=== PATIENT | male | born 1945 | race Caucasian/White ===

== ENCOUNTER 2022-12-16 09:38 | Emergency (ER) | payer MEDICARE, SELFPAY ==
[2022-12-16] VITALS (11 sets, daily range): BP systolic 172–200; BP diastolic 72–84; PULSE 49–64; RESP 18–22; TEMP 36.8; O2SAT 96–99; BMI 27.8
--- NOTE | 2022-12-16 09:55 | DI.RAD.S_ITS ---
PROCEDURE: XR CHEST 1V INDICATIONS: chest pain TECHNIQUE: One view of the chest was acquired. COMPARISON: None. FINDINGS: Surgical changes and devices: None. Lungs and pleura: Lungs are clear. No pleural effusions or pneumothorax. Mediastinum: Mediastinal contours appear normal. Heart size is normal. Bones and chest wall: No suspicious bony lesions. Overlying soft tissues appear unremarkable. IMPRESSION: No acute cardiopulmonary process. Dictated by: Vignesh Colvin M.D. on 12/16/2022 at 10:35 Approved by: Vignesh Colvin M.D. on 12/16/2022 at 10:35
[2022-12-16 10:09] LABS: Add Manual Diff / Slide Review NO; Basophils Absolute Auto 100 /uL (0-100); Basophils Percent Auto 1.1 % (0-2); Eosinophils Absolute Auto 100 /uL (0-450); Eosinophils Percent Auto 2.2 % (2-4); Hemoglobin 13.2 g/dL (13.5-17.5); Lymphocytes Absolute Auto 1700 /uL (1100-4500); Lymphocytes Percent Auto 26.3 % (25-40); Mean Corpuscular HGB Conc 34.6 % (30-36); Mean Corpuscular Hemoglobin 33.4 PG (26-34); Mean Corpuscular Volume 96.3 fL (80-100); Monocytes Absolute Auto 800 /uL (0-900); Monocytes Percent Auto 12.3 % (3-14); Neutrophils Absolute Auto 3800 /uL (1500-7000); Neutrophils Percent Auto 58.1 % (50-75); Platelet Count 177 X10^3/uL (150-400); Red Blood Cell Count 3.94 X10^6/uL (4.5-5.9); Red Cell Distribution Width 13.5 % (11.6-14.8); White Blood Cell Count 6.6 X10^3/uL (4.5-11.0)
[2022-12-16 10:15] LABS: PTT Partial Thromboplastin Tim 29 SECONDS (26-36)
[2022-12-16 10:18] LABS: Alanine Aminotransferase 22 IU/L (<50); Albumin 4.2 g/dL (3.5-5.0); Albumin Globulin Ratio 1.4 (1.0-2.8); Alkaline Phosphatase 76 U/L (38-126); Aspartate Aminotransferase 30 IU/L (17-59); BUN Creatinine Ratio 18.3 (6-22); Bilirubin Total 0.8 mg/dL (0.2-1.3); Blood Urea Nitrogen 19 mg/dL (9-20); Calcium 9.1 mg/dL (8.4-10.2); Carbon Dioxide 27 mmol/L (22-32); Chloride 106 mmol/L (98-107); Creatine Kinase 79 U/L (55-170); Estimated Glomerular Filt Rate > 60 mL/min (>60); Glucose 101 mg/dL (80-110); HEMOLYSIS 19 (0-50); Lipase 58 U/L (23-300); Magnesium 2.2 mg/dL (1.6-2.3); Potassium 4.3 mmol/L (3.4-5.1); Sodium 137 mmol/L (137-145); Total Protein 7.2 g/dL (6.3-8.2)
[2022-12-16 10:29] LABS: Troponin I < 0.012 ng/mL (0.01-0.034)
--- NOTE | 2022-12-16 10:45 | ED_ITS ---
HPI - General Adult General Chief complaint: Hypertension Stated complaint: high bp Time Seen by Provider: 12/16/22 10:45 Source: patient Mode of arrival: Ambulatory History of Present Illness HPI narrative: 77-year-old male with history of hypertension that has been moderately controlled. Patient has prior history of pulmonary emboli and factor 5 Leiden and a prior subdural after having a supratherapeutic INR. Patient was then ultimately converted over to Eliquis. Patient presents today for hypertension. He states he is recently had medication changes he was noted to be bradycardic and feeling fatigued so they had decreased his diltiazem to 180 mg daily. He then had losartan 25 mg added back 3 weeks ago and was bumped up to 50 mg 1 week ago. He has been checking his blood pressures regularly. Patient states he has been checking his blood pressure at home he was 150-160 in the morning and 120- 110 in the evenings he checks twice daily he has been running like this for several weeks. Patient states this morning he woke up he had a little bit of a pain in the left side of his neck did not radiate anywhere, he never had any chest pain or pressure shortness of breath no diaphoresis no nausea or vomiting, no headaches. No vision changes. No numbness tingling or weakness. No swelling in extremities. No GI or urinary symptoms. Patient denied any other symptoms. He states that resolved shortly thereafter. He checked his blood pressure was 200 systolic. Patient states he has been taking his other medications regularly which includes Eliquis, atorvastatin probiotic and vitamins. Patient had no prior surgeries. He states he is allergic to Keppra. Notes he had a nontraumatic subdural after a significantly supratherapeutic Coumadin level. He was on Keppra prophylactically which is how he found his allergy. Denies tobacco, alcohol or illicit. He lives in [place] with his they are visiting for the week and flew in yesterday. Related Data Previous Rx's Medication Instructions Recorded losartan 25 mg tablet 25 mg PO DAILY #21 tabs 12/16/22 Allergies Allergy/AdvReac Type Severity Reaction Status Date / Time levetiracetam [From Keppra] Allergy Intermediate Rash Verified 12/16/22 09:49 Review of Systems Review of Systems ROS Unobtainable: All systems reviewed & are unremarkable except as noted in HPI and below Patient History Medical History Factor 5 Leiden mutation, heterozygous Hypertension Social History Smoking Status: Former smoker Smoking Status: Former smoker alcohol intake frequency: a few times a week Substance Use Type: does not use Exam Narrative Exam Narrative: GENERAL: Alert and oriented x three, male in no acute distress. HEENT: Head normocephalic, atraumatic, EOMI, pupils reactive, face symmetric, moist mucous membranes NECK: Supple, full range of motion, no cervical vertebral tenderness. CARDIOVASCULAR: Regular rate and rhythm without murmurs, rubs or gallops. RESPIRATORY: Breath sounds equal bilaterally, no wheezes rales or rhonchi. ABDOMEN: Soft, nontender. Normoactive bowel sounds all 4 quadrants. No guarding or rebound, rigidity, no mass, no pulsatile mass or bruit. : No CVA tenderness EXTREMITIES: Normal range of motion, no clubbing or edema. Neurovascularly inta ct NEUROLOGICAL: Cranial nerves II through XII grossly intact. Moving all extremities SKIN: Warm, dry, no petechiae, no rashes or lesions. Initial Vital Signs Initial Vital Signs: Vital Signs Temperature 98.3 F 12/16/22 09:44 Pulse Rate 64 12/16/22 09:44 Respiratory Rate 18 12/16/22 09:44 Blood Pressure 200/83 H 12/16/22 09:44 Pulse Oximetry 99 12/16/22 09:44 Oxygen Delivery Method Room Air 12/16/22 09:44 Course Orders Ordered: ED Orders 12/16/22 09:55 XR chest 1V Stat 12/16/22 10:00 Complete Blood Count AUTO DIFF Stat Comprehensive Metabolic Panel Stat Lipase Stat Magnesium Stat PTT Partial Thromboplastin Fareed Stat Prothrombin Time INR Stat Troponin & CK Cardiac Panel Stat 12/16/22 10:06 EKG-12 Lead Stat Vital Signs Vital signs: Vital Signs - 8 hr 12/16/22 09:44 12/16/22 09:55 12/16/22 09:56 Temperature 98.3 F Pulse Rate 64 Respiratory Rate 18 Blood Pressure 200/83 H 194/84 H Pulse Oximetry 99 97 Oxygen Delivery Method Room Air 12/16/22 09:56 12/16/22 10:00 12/16/22 10:09 Temperature Pulse Rate 56 L 59 L 56 L Respiratory Rate 20 Blood Pressure Pulse Oximetry 97 98 99 Oxygen Delivery Method 12/16/22 10:09 12/16/22 10:30 12/16/22 10:31 Temperature Pulse Rate 51 L 51 L Respiratory Rate 21 20 Blood Pressure 181/72 H Pulse Oximetry 97 96 Oxygen Delivery Method 12/16/22 10:31 12/16/22 11:00 12/16/22 11:01 Temperature Pulse Rate 49 L Respiratory Rate 19 Blood Pressure 172/76 H 180/78 H Pulse Oximetry 96 Oxygen Delivery Method 12/16/22 11:01 12/16/22 11:30 12/16/22 11:31 Temperature Pulse Rate 49 L 51 L 49 L Respiratory Rate 22 21 22 Blood Pressure Pulse Oximetry 96 97 97 Oxygen Delivery Method 12/16/22 11:31 Temperature Pulse Rate Respiratory Rate Blood Pressure 176/79 H Pulse Oximetry Oxygen Delivery Method Medical Decision Making Lab Data 12/16/22 10:00 12/16/22 10:00 Labs: Lab Results 12/16/22 12/16/22 12/16/22 Range/Units 10:00 10:00 10:00 WBC 6.6 (4.5-11.0) X10^3/uL RBC 3.94 L (4.5-5.9) X10^6/uL Hgb 13.2 L (13.5-17.5) g/dL Hct 38.0 L (41-53) % MCV 96.3 (80-100) fL MCH 33.4 (26-34) PG MCHC 34.6 (30-36) % RDW 13.5 (11.6-14.8) % Plt Count 177 (150-400) X10^3/uL Neut % (Auto) 58.1 (50-75) % Lymph % (Auto) 26.3 (25-40) % Rich % (Auto) 12.3 (3-14) % Eos % (Auto) 2.2 (2-4) % Baso % (Auto) 1.1 (0-2) % Neut # (Auto) 3800 (1928-0876) /uL Lymph # (Auto) 1700 (8435-9333) /uL Rich # (Auto) 800 (0-900) /uL Eos # (Auto) 100 (0-450) /uL Baso # (Auto) 100 (0-100) /uL PT 12.0 (10.1-12.7) SECONDS INR 1.0 (0.9-1.3) APTT 29 (26-36) SECONDS Sodium 137 (137-145) mmol/L Potassium 4.3 (3.4-5.1) mmol/L Chloride 106 (98-107) mmol/L Carbon Dioxide 27 (22-32) mmol/L BUN 19 (9-20) mg/dL Creatinine 1.04 (0.66-1.25) mg/dL Estimated GFR > 60 (>60) mL/min BUN/Creatinine Ratio 18.3 (6-22) Glucose 101 (80-110) mg/dL Calcium 9.1 (8.4-10.2) mg/dL Magnesium 2.2 (1.6-2.3) mg/dL Total Bilirubin 0.8 (0.2-1.3) mg/dL AST 30 (17-59) IU/L ALT 22 (<50) IU/L Alkaline Phosphatase 76 (38-126) U/L Total Creatine Kinase 79 (55-170) U/L Troponin I < 0.012 (0.01-0.034) ng/mL Total Protein 7.2 (6.3-8.2) g/dL Albumin 4.2 (3.5-5.0) g/dL Globulin 3.0 (1.7-4.1) g/dL Albumin/Globulin Ratio 1.4 (1.0-2.8) Lipase 58 (23-300) U/L Imaging Data Chest x-ray: Radiologist's Impression: [address] [address] XRay Report Signed Patient: Sly Howard MR#: [id number] : 1945 Acct:[id number] Age/Sex: 77 / M Date of Service: 12/16/22 Loc: ED Accession Number: [id number] ?? Procedure: XR chest 1V Ordering Provider: Carrie Medina D.O. PROCEDURE:? XR CHEST 1V ? INDICATIONS:? chest pain ? TECHNIQUE:? One view of the chest was acquired.? ? COMPARISON:? None. ? FINDINGS:? ? Surgical changes and devices:? None.? ? Lungs and pleura:? Lungs are clear.? No pleural effusions or pneumothorax.? ? Mediastinum:? Mediastinal contours appear normal.? Heart size is normal.? ? Bones and chest wall:? No suspicious bony lesions.? Overlying soft tissues appear unremarkable.? ? IMPRESSION:? No acute cardiopulmonary process. ? ? ? Dictated by: Vignesh Colvin M.D. on 12/16/2022 at 10:35 ? ? Approved by: Vignesh Colvin M.D. on 12/16/2022 at 10:35?? ECG Data Attestation: I personally reviewed and interpreted this ECG as follows: Prior ECG tracings: not available for review Interpretation: Sinus bradycardia rate of 57 W[place] 160 QRS 84 QTC of 428. No acute ST elevation depression noted. No priors available. MDM Narrative Medical decision making narrative: Discussed with patient his blood pressure has been improving without intervention here he was 176/79 most recently when I was in the room has been trending down words overall. Patient had brief neck pain in the left upper neck that did not radiate he states he slept sort of funny when he 1st woke up. He is had no other symptoms. He has been running about 150s to 160s pretty regularly in the mornings, he has had his medications altered recently in his likely requiring a little bit more change. His lab workup including CBC, CMP, coags, LFTs, troponin chest x-ray negative. No end-organ damage or other changes appreciated. EKG does not show any acute change no priors for comparison. Discussed with patient will increase his losartan by another 25 mg as he has a log of his blood pressures and he is typically elevated in the morning and less so in the evenings will add the 25 mg in the evening rather than to his morning dose of losartan to see if this will normalize him a bit mo re. Discussed return precautions. All questions answered. Discharge Plan Departure Patient Disposition: Home Clinical Impression: Hypertension Instructions: DI for High Blood Pressure Activity Restrictions/Additional Instructions: Follow-up with your physician and continue to check your blood pressure regularly. I would recommend adding 25 mg of losartan in the evening Continue your losartan 50 mg each morning with an additional dose of 25 mg in the evening. You may continue your diltiazem 180 mg daily at your usual time. Prescription is printed for additional losartan but you can split the 50 mg tablets if you have enough. Please return for headaches, vision changes, new chest pain or shortness of breath, nausea or vomiting, new numbness, tingling or weakness, vision changes, speech changes, new swelling in her extremities or other new or concerning changes. Prescriptions: New losartan 25 mg tablet 25 mg PO DAILY Qty: 21 0RF Rx Instructions: Take 50mg (2 tablets) in the am and 25mg (1 tablet) in the pm. Referrals: Miscellaneous,Doctor, MD [Primary Care Provider] - Stand Alone Forms: Patient Portal/API
== END 2022-12-16 12:13 | disposition home or self-care (01) ==
PROVIDERS: Emergency Medicine; Emergency Provider Emergency Medicine
DX: I10 Essential (primary) hypertension (principal); R07.9 Chest pain, unspecified; Z79.01 Long term (current) use of anticoagulants
CPT/HCPCS: 36415; 71045; 80053; 82550; 83690; 83735; 84484; 85025; 85610; 85730; 93005; 99284